=== PATIENT | male | born 1975 | race Hispanic/Latino ===

== ENCOUNTER 2017-11-02 12:31 | Outpatient (CLI) | payer BC ==
--- NOTE | 2017-11-02 15:16 | RAD ---
STANDARD SACRUM AND COCCYX TWO VIEWS: HISTORY: Fell down steps with pain to the tailbone. COMPARISON: None. FINDINGS: There is a dorsally displaced fracture of the coccyx at C1 with dorsal displacement of 7 mm. The pub ic symphysis and SI joints are mildly narrowed. IMPRESSION: Dorsally displaced coccyx fracture at C1. POS: [facility]
== END 2017-11-02 12:32 | disposition home or self-care (01) ==
LOC: NAV RAD 12:31
PROVIDERS: ATTEND Family Medicine
DX: M53.3 Sacrococcygeal disorders, not elsewhere classified (principal); S32.2XXA Fracture of coccyx, initial encounter for closed fracture
CPT/HCPCS: 72220

== ENCOUNTER 2018-09-17 08:14 | Emergency (ER) | payer BC ==
[2018-09-17 08:33] LABS: #Basophils 0.1 thou/uL (0.0-0.2); #Eosinphils 0.1 thou/uL (0.0-0.7); #Lymphocytes 1.6 thou/uL (1.20-3.40); #Monocytes 0.5 thou/uL (0.11-0.59); %Basophils 0.8 % (0.0-1.0); %Eosinophils 1.2 % (0.0-10.0); %Lymphocytes 21.8 % (21.0-51.0); %Monocytes 6.6 % (0.0-10.0); %Neutrophils 69.7 % (42.0-75.0); Mean Corpuscular HGB CONC 34.8 g/dL (32.0-36.0); Mean Corpuscular Hemoglobin 29.5 pg (27.0-31.0); Mean Corpuscular Volume 84.9 fL (78.0-98.0); Mean Platelet Volume 7.4 fL (7.4-10.4); Platelet Count 232 thou/uL (130-400); RBC Distribution Width 11.2 % (11.5-14.5); Red Blood Cell (RBC) Count 4.74 mill/uL (4.70-6.10); White Blood Cell (WBC) Count 7.2 thou/uL (4.8-10.8)
[2018-09-17 08:38] LABS: PTT 35.1 SEC (22.9-36.1); Prothrombin Time 13.6 SEC (12.0-14.7)
--- NOTE | 2018-09-17 08:45 | CT ---
HEAD CT NONCONTRAST: Indication: CVA. FINDINGS: There is no acute intracranial hemorrhage, mass effect, midline shift, or ventriculomegaly. Visualize d paranasal sinuses are clear. IMPRESSION: 1. No acute intracranial hemorrhage or mass effect. 2. Notification of report findings placed at 0830 hours 09-17-18. Code CR
[2018-09-17 08:48] LABS: ALT (SGPT) 25 U/L (8-55); AST (SGOT) 25 U/L (5-34); Albumin 4.4 g/dL (3.5-5.0); Alkaline Phosphatase 64 U/L (40-150); Anion Gap 12 mmol/L (10-20); BUN (Urea Nitrogen) 18 mg/dL (8.9-20.6); Bilirubin, Total 0.6 mg/dL (0.2-1.2); CKMB 1.1 ng/mL (0-6.6); Calc. Creatinine Clearance 0 mL/min (70-130); Calcium 9.6 mg/dL (7.8-10.44); Carbon Dioxide 24 mmol/L (22-29); Chloride 104 mmol/L (98-107); Estimated GFR-MDRD Greater than 90; Globulin 2.7 g/dL (2.4-3.5); Glucose 161 mg/dL (70-105); Potassium 3.8 mmol/L (3.5-5.1); Protein, Total 7.1 g/dL (6.0-8.3); Sodium 136 mmol/L (136-145); Troponin I Less than 0.010 ng/mL (< 0.028)
[2018-09-17] MEDS ORDERED: predniSONE 20 MG TAB ONE (09:10)
[2018-09-17] MEDS ORDERED: predniSONE 20 MG TAB PO SCH (09:15)
== END 2018-09-17 09:26 | disposition home or self-care (01) ==
LOC: NAV ERS 08:14
DX: G51.0 Bell's palsy (principal); E11.9 Type 2 diabetes mellitus without complications; E78.5 Hyperlipidemia, unspecified; I10 Essential (primary) hypertension; F41.9 Anxiety disorder, unspecified; Z79.899 Other long term (current) drug therapy; Z87.891 Personal history of nicotine dependence; Z79.1 Long term (current) use of non-steroidal anti-inflammatories (NSAID); Z79.84 Long term (current) use of oral hypoglycemic drugs
CPT/HCPCS: 36416; 70450; 80053; 82553; 84484; 85025; 85610; 85730; 93005; J7506

== ENCOUNTER 2022-01-25 08:49 | Outpatient (CLI) | payer BC | END 2022-01-25 08:50 | disposition home or self-care (01) | LOC: NAV RAD 08:49 | PROVIDERS: ATTEND Family Medicine | DX: R07.89 Other chest pain (principal) ==